=== PATIENT | female | born 1960 | race Caucasian/White ===

== ENCOUNTER 2019-12-08 21:37 | Emergency (ER) | payer OTHER, SELFPAY ==
--- NOTE | ~2019-12-08 | CT_ITS ---
EXAMINATION: CT abdomen pelvis w con DATE: 12/09/2019 01:24 INDICATION: Right lower abdominal pain TECHNIQUE: Computed tomography (CT) of the abdomen and pelvis was performed with 100 cc Omnipaque 350 intravenous contrast. Automated exposure control and iterative reconstruction technique were employe d. Exam dose: 818.18 mGy-cm total exam DLP. COMPARISON: 10/29/2008 CT abdomen pelvis FINDINGS: The lung bases are clear of infiltrate or consolidation. Normal heart size. No pericardial or pleural effusion. Status post cholecystectomy. No hepatic, splenic, pancreatic, adrenal or renal space-occupying mass l esion is detected. No bile duct or pancreatic duct dilatation. No urinary tract calculus or hydrouret eronephrosis. The urinary bladder is unremarkable. Retroverted uterus. Normal caliber of the abdominal aorta. No intraperitoneal or retroperitoneal or pelvic mass lesion or adenopathy or ascites. Normal appendix. No bowel obstruction, bowel wall thickening, pneumatosis or intraperitoneal free air . Degenerative changes of the thoracic and lumbar spine. No suspicious osteolytic or osteoblastic lesio ns are noted. IMPRESSION: Status post cholecystectomy Normal appendix. Reviewed, dictated and finalized at [facility] Reviewed, dictated and finalized at [facility].
[2019-12-08 22:29] VITALS: BP 115/91; PULSE 81; RESP 20; TEMP 36.3; O2SAT 97
[2019-12-08 22:46] LABS: Basophils Percent Auto 0.4 % (0.2-1.2); Eosinophils Absolute Auto 0.2 K/mm3 (0-0.3); Eosinophils Percent Auto 2.7 % (0-4.4); Hematocrit 43.8 % (37.0-47.0); Hemoglobin 14.9 g/dL (12.0-15.0); Immature Granulocyte Absolute 0.02 K/mm3 (0.00-0.031); Immature Granulocyte Percent A 0.3 % (0-0.5); Lymphocytes Absolute Auto 1.43 K/mm3 (0.9-3.2); Lymphocytes Percent Auto 21.3 % (18.3-44.2); Mean Corpuscular Hemoglobin 29.6 pg (26-34); Mean Corpuscular Volume 86.9 fl (80-100); Mean Platelet Volume 10.9 fl (7.4-10.4); Monocytes Absolute Auto 0.6 K/mm3 (0.1-0.6); Monocytes Percent Auto 9.4 % (2.6-8.5); Neutrophils Absolute Auto 4.4 K/mm3 (1.3-6.7); Neutrophils Percent Auto 65.9 % (45.5-73.1); Platelet Count Result 186 k/mm3 (150-375); Red Blood Count 5.04 M/mm3 (4.2-5.4); Red Cell Distribution Width 12.3 % (11.5-14.5); White Blood Count 6.7 K/mm3 (4.5-10.0)
[2019-12-08 22:58] LABS: Alanine Aminotransferase 23 U/L (4-35); Albumin Level 4.3 g/dL (3.5-5.1); Alkaline Phosphatase 86 U/L (38-126); Anion Gap 6 mmol/L (8-16); Aspartate Amino Transferase 28 U/L (14-36); Bilirubin,Total 0.6 mg/dL (0.2-1.3); Blood Urea Nitrogen 19 mg/dL (7-17); Calcium 10.1 mg/dL (8.4-10.2); Carbon Dioxide 26 mmol/L (22-30); Chloride 103 mmol/L (98-107); Estimated CRCL calculation 65 ml/min; Estimated Glomerular Filt Rate > 60; Glucose 115 mg/dL (65-105); Lipase 82 U/L (23-300); Potassium 3.7 mmol/L (3.4-5.0); Sodium 135 mmol/L (137-145)
[2019-12-08 23:54] VITALS: BP 112/70; PULSE 82
[2019-12-08 23:56] VITALS: BP 116/75; PULSE 80
[2019-12-08 23:58] VITALS: BP 112/66
--- NOTE | 2019-12-09 00:47 | ED.NAVMDI ---
HPI - Nausea/Vomiting/Diarrhea General Chief complaint: Nausea/Vomiting/Diarrhea Stated complaint: Diarrhea,RLQ pain Time Seen by Provider: 12/08/19 23:50 Source: patient Mode of arrival: ambulatory Limitations: no limitations History of Present Illness HPI Narrative: This patient is a 59 year old female who presents for evaluation of nausea and diarrhea. She developed diarrhea 2 nights ago. She reports she has intermittent episodes of explosive watery diarrhea. She also reports she feels really gasey. She developed right lower abdominal pain with nausea today so she came to ER. She denies fever or chills. Related Data Allergies Allergy/AdvReac Type Severity Reaction Status Date / Time neomycin Allergy Mild Unknown Verified 12/08/19 22:34 hydromorphone Allergy Unknown MAKES HER Verified 12/08/19 22:34 SICK Sulfa (Sulfonamide Allergy Unknown Hives Verified 12/08/19 22:34 Antibiotics) Review of Systems Review of Systems: All systems reviewed & are unremarkable except as noted in HPI and below Constitutional: Constitutional: Denies chills and Denies fever(s) ENT: Denies sore throat Cardiovascular: Cardiovascular: Denies chest pain Respiratory: Respiratory: Denies cough and Denies dyspnea Gastrointestinal: Gastrointestinal: Reports abdominal pain, Reports diarrhea, Reports nausea and Denies vomiting PMFSH Past Medical History Medical History (Updated 12/09/19 @ 03:24 by Yarelis Wetzel MD) IBS (irritable bowel syndrome) Surgical History Surgical History (Updated 12/09/19 @ 00:49 by Yarelis Wetzel MD) Hx of cholecystectomy Social History Social History (Updated 12/09/19 @ 07:35 by Yarelis Wetzel MD) Smoking status: Never smoker Exam Const: General: alert Orientation/consciousness: patient oriented x3 HENMT: Head: normocephalic and atraumatic Eyes: EOM: EOMs intact bilaterally Chest: Chest palpation & inspection: normal inspection of the chest Resp: Effort & Inspection: normal respiratory effort and no retractions Auscultation: clear to auscultation bilaterally Cardio: Rate: regular rate Rhythm: regular rhythm Heart sounds: no murmurs GI: GI Palp: Yes Soft to palpation, Yes Tenderness to palpation present (GI) (rLQ), No Guarding due to palpation present (GI) and No Rigid due to palpation Course Reevaluation(s) Reevaluation #1: I discussed with patient that CT shows fatty liver. She reports she is on a keto diet. She will follow up with PCP Date: 12/09/19 Time: 03:22 Vital Signs Vital signs: Vital Signs Temperature 97.4 F L 12/08/19 22:29 Pulse Rate 81 12/08/19 22:29 Respiratory Rate 20 12/08/19 22:29 Blood Pressure 115/91 H 12/08/19 22:29 Pulse Oximetry 97 12/08/19 22:29 Temperature 97.4 F L 12/08/19 22:29 Pulse Rate 72 12/09/19 03:43 Respiratory Rate 16 12/09/19 03:43 Blood Pressure 102/59 L 12/09/19 03:43 Pulse Oximetry 99 12/09/19 03:43 MDM - Nausea/Vomiting/Diarrhea Lab Data Attestation: I reviewed the patient's lab results. Result diagrams: 12/08/19 22:40 12/08/19 22:40 Labs: Lab Results 12/08/19 12/08/19 12/09/19 Range/Units 22:40 22:40 00:20 WBC 6.7 (4.5-10.0) K/mm3 RBC 5.04 (4.2-5.4) M/mm3 Hgb 14.9 (12.0-15.0) g/dL Hct 43.8 (37.0-47.0) % MCV 86.9 (80-100) fl MCH 29.6 (26-34) pg MCHC 34.0 (32-36) g/dl RDW 12.3 (11.5-14.5) % Plt Count 186 (150-375) k/mm3 MPV 10.9 H (7.4-10.4) fl Immature Gran % (Auto) 0.3 (0-0.5) % Neut % (Auto) 65.9 (45.5-73.1) % Lymph % (Auto) 21.3 (18.3-44.2) % Kern % (Auto) 9.4 H (2.6-8.5) % Eos % (Auto) 2.7 (0-4.4) % Baso % (Auto) 0.4 (0.2-1.2) % Lymph # (Auto) 1.43 (0.9-3.2) K/mm3 Kern # (Auto) 0.6 (0.1-0.6) K/mm3 Eos # (Auto) 0.2 (0-0.3) K/mm3 Baso # (Auto) 0.0 (0.0-0.1) K/mm3 Abs Immat Gran (auto) 0.02 (0.00-0.031) K/mm3 Absolute Neuts (au
[2019-12-09 00:50] LABS: Add Urine Microscopic? YES; Appearance Urine Clear (Clear); Bilirubin Urine Negative (Negative); Blood Urine Negative (Negative); Color Urine Yellow (Yellow); Glucose Urine UA Negative (Negative); Ketones Urine Negative (Negative); Leukocyte Esterase Ur Trace LEU/UL (Negative); Mucus Urine Rare /lpf; Nitrate Urine Negative (Negative); Protein Urine Negative (Negative); RBC Urine 0-2 /hpf (0-2); Specific Grav Ur 1.015 (1.001-1.035); Squamous Epithelial Cell Urine Occasional /hpf (Few); Urobilinogen Urine Negative mg/dL (<2.0)
[2019-12-09 01:00] VITALS: BP 112/65; PULSE 70; RESP 16; O2SAT 99
[2019-12-09 02:00] VITALS: BP 135/74; PULSE 67
[2019-12-09] MEDS: LACTATED RINGERS 1,000 ML 999 ML IV CONT (02:10)
[2019-12-09] MEDS: ONDANSETRON INJ 4 MG/2 ML VIAL IV PUSH (02:20)
[2019-12-09 03:43] VITALS: BP 102/59; PULSE 72; RESP 16; O2SAT 99
== END 2019-12-09 03:44 | disposition home or self-care (01) ==
PROVIDERS: Emergency Provider General Practice; PCP Family Medicine Adolescent Medicine
DX: R10.31 Right lower quadrant pain (principal); R19.7 Diarrhea, unspecified; K76.0 Fatty (change of) liver, not elsewhere classified
CPT/HCPCS: 36415; 74177; 80053; 81001; 81025; 83690; 85025; 96361; 96374; 96375; 99284; J0131; J2405; J7120; Q9967

== ENCOUNTER 2020-12-22 16:13 | Emergency (ER) | payer OTHER, SELFPAY ==
[2020-12-22 16:28] VITALS: BP 113/69; PULSE 82; RESP 16; TEMP 36.2; O2SAT 98
[2020-12-22 16:30] VITALS: BP 113/69; PULSE 82; RESP 16; TEMP 36.2; O2SAT 98
--- NOTE | 2020-12-22 17:25 | ED.BURNSMOKE ---
HPI - Burn/Smoke Inhalation General Chief complaint: Burn/Smoke Inhalation Stated complaint: Burn on Hand Time Seen by Provider: 12/22/20 17:10 Source: patient, RN notes reviewed and old records reviewed Mode of arrival: ambulatory Limitations: no limitations History of Present Illness HPI Narrative: 60-year-old female accompanied by spouse presents to express care with complaint of burn to dorsal aspect of her left proximal 5th finger which occurred about one week ago while getting pain out of oven. Patient states that she has been applying bacitracin ointment to burn area,reports that blister formation at first but it did bust. Patient states that she is concerned because she has increase in discomfort back into her hand now with no redness of dorsal hand noted or any red streaking noted into hand or any acute warmth of hand. 1cm burn noted to dorsal proximal left 5th finger with center area noted to be in healing stages with no surrounding erythema noted. Patient states she thinks she needs some Silvadene ointment for her burn. Cautioned patient that she is allergic to sulfa and normally don't use Silvadene with sulfa allergy, patient states that she has used it before. MD Complaint: burn Onset (ago): week(s) (1) Related Data Home Medications Medication Instructions Recorded Confirmed conjugated estrogens [Premarin] 0.625 mg TOPICAL DAILY 12/22/20 12/22/20 mirabegron [Myrbetriq] 25 mg PO DAILY 12/22/20 12/22/20 vortioxetine [Trintellix] 20 mg PO DAILY 12/22/20 12/22/20 Allergies Allergy/AdvReac Type Severity Reaction Status Date / Time neomycin Allergy Mild Unknown Verified 12/22/20 16:25 hydromorphone Allergy Unknown MAKES HER Verified 12/22/20 16:25 SICK Sulfa (Sulfonamide Allergy Unknown Hives Verified 12/22/20 16:25 Antibiotics) Review of Systems Review of Systems: CONSTITUTIONAL: Denies fever, chills, or sweats. EYES: Denies visual changes, redness, or discharge. ENT: Denies rhinorrhea, congestion, sore throat, or otalgia. CARDIOVASCULAR: Denies chest pain, palpitations, or edema. RESPIRATORY: Denies cough or dyspnea. GASTROINTESTINAL: Denies abdominal pain, nausea, vomiting, or diarrhea. GENITOURINARY: Denies dysuria or hematuria. SKIN: Denies rash or itching.healing burn to proximal left 5th finger with stated pain into dorsal hand now MUSCULOSKELETAL: Denies back pain, joint pain, or myalgia. NEUROLOGIC: Denies headache, numbness, or weakness. PSYCHIATRIC: Positive history of anxiety or depression. All systems reviewed & are unremarkable except as noted in HPI and below PMFSH Past Medical History Medical History (Updated 12/26/20 @ 10:05 by Viri Su NP) Anxiety Arthritis GERD (gastroesophageal reflux disease) IBS (irritable bowel syndrome) Peripheral neuropathy Surgical History Surgical History (Updated 12/26/20 @ 10:05 by Viri Su NP) Hx of cholecystectomy Previous section Family History Family History (Updated 12/26/20 @ 10:07 by Viri Su NP) Sibling Diabetes mellitus Father Diabetes mellitus Heart disease Social History Social History (Updated 12/26/20 @ 10:06 by Viri Su NP) Smoking status: Never smoker Alcohol intake: current Alcohol use details: rare use Substance use: never Living arrangements: with family Gender identity (if verbalized by the patient): Female Comments At time of signature, agree with nursing past medical, surgical, social and family history. There is no relevant family history pertinent to the presenting complaint Exam Narrative: GENERAL: Well-appearing, well-nourished, and in no acute distress. HEAD: Normocephalic, atraumatic. EYES: PERRLA and EOMI. ENT: Nares clear, no rhinorrhea or epistaxis. Mucous membranes moist.TM's normal with good light reflex, throat normal with no redness lesions or exudates no tonsil enlargement. NECK: Supple.no lymphadenopathy CHEST: Clear to auscultation. No
== END 2020-12-22 17:44 | disposition home or self-care (01) ==
PROVIDERS: Emergency Provider Registered Nurse; PCP Family Medicine Adolescent Medicine
DX: T23.022A Burn of unspecified degree of single left finger (nail) except thumb, initial encounter (principal); X15.0XXA Contact with hot stove (kitchen), initial encounter
CPT/HCPCS: 99213; G0463

== ENCOUNTER 2021-12-28 12:28 | Emergency (ER) | payer OTHER, SELFPAY ==
--- NOTE | ~2021-12-28 | CT_ITS ---
EXAMINATION: CT abdomen pelvis wo con DATE: 12/28/2021 13:43 INDICATION: Left flank pain TECHNIQUE: Computed tomography (CT) of the abdomen and pelvis was performed without intravenous contr ast. The dose-length product was 702.11 mGy-cm. Automated exposure control and iterative reconstructi on technique were employed. COMPARISON: CT dated 12/09/2019 FINDINGS: Lung bases are unremarkable. Heart size is normal. No significant pleural or pericardial ef fusion. There is a 5 mm left UVJ stone with mild left hydroureteronephrosis. There are cholecystectom y clips. The liver, spleen, pancreas, adrenal glands and right kidney are unremarkable. Nonobstructiv e bowel pattern. No free air or free fluid. No abnormal pelvic masses or fluid collections. There is mild-moderate lumbar spondylosis with grade 1 degenerative spondylolisthesis at L4-5. No focal lytic or blastic lesions. There is mild osteoarthritis of the hips. There is dextroscoliosis of the lumbar spine. IMPRESSION: 1. Left UVJ stone measuring 5 mm with mild hydroureteronephrosis. Reviewed, dictated and finalized at [facility].
[2021-12-28 12:39] VITALS: BP 126/82; PULSE 87; RESP 16; TEMP 36.4; O2SAT 98
--- NOTE | 2021-12-28 13:12 | ED.BACK ---
HPI - Back Pain/Injury General Chief Complaint: Back Pain/Injury Stated Complaint: lower left back pain/ sudden onset UTI Time Seen by Provider: 12/28/21 12:43 Source: RN notes reviewed History of Present Illness HPI Narrative: Patient presents emergency room from home for onset back pain. Patient states pain began suddenly this morning around 10 AM. The pain is located in the left lower back and radiates around the left side of the abdomen described as aching in nature states the pain will come and go and be severe in intensity and then be mild states is associated with dysuria she denies any fevers or chills chest shortness of breath does note nausea but denies any vomiting Related Data Home Medications Medication Instructions Recorded Confirmed escitalopram oxalate 20 mg tablet 20 mg PO DAILY 03/19/21 11/05/21 (Lexapro) pantoprazole 40 mg tablet,delayed 40 mg PO BID 11/05/21 11/05/21 release Allergies Allergy/AdvReac Type Severity Reaction Status Date / Time neomycin Allergy Mild Unknown Verified 12/28/21 12:41 hydromorphone Allergy Unknown MAKES HER Verified 12/28/21 12:41 SICK Sulfa (Sulfonamide Allergy Unknown Hives Verified 12/28/21 12:41 Antibiotics) doxycycline AdvReac Unknown unknown Verified 12/28/21 12:41 Review of Systems Review of Systems: Gen.: Denies fevers or chills ENT: Denies congestion Respiratory: Denies shortness of breath or cough CV: Denies chest pain or palpitations GI: Reports left-sided abdominal pain and mild nausea denies vomiting or diarrhea reports dysuria Musculoskeletal: Denies back pain or muscle pain Neuro: Denies numbness, tingling, weakness or focal weakness Skin: Denies rash Except as documented, all other systems reviewed and negative [facility] Past Medical History Medical History IBS (irritable bowel syndrome) Peripheral neuropathy Surgical History Surgical History Hx of cholecystectomy (1999) 1999 Hx of laser iridotomy Previous section Family History Family History Sibling Diabetes mellitus Father Diabetes mellitus Heart disease Cerebrovascular accident Mother Hypertension AAA (abdominal aortic aneurysm) Grandparent Aneurysm Social History Social History Smoking status: Never smoker Alcohol intake: current Alcohol use details: rare use Substance use: never Gender identity (if verbalized by the patient): Female Exam Narrative: APPEARANCE: No acute distress, nontoxic, resting in bed EYES: EOMI HEENT: Normocephalic, atraumatic, OMM RESPIRATORY: No respiratory distress Clear to auscultation bilaterally with no rhonchi wheezing or rales. CARDIOVASCULAR: Regular rate and rhythm without murmurs rubs or gallops. ABDOMINAL: Soft, n nondistended, tender palpation left lower quadrant no tenderness left upper quadrant, right upper quadrant right lower quadrant no rebound or guarding, left flank tenderness MUSCULOSKELETAl: Moves all extremities. No clubbing, cyanosis or edema. NEURO: Awake and alert. Following commands, speech normal, no focal deficits SKIN:: Warm, dry. No rashes lesions or abrasions PSYCHIATRIC: Normal affect/mood, Course Course Emergency Course: Discussed with patient results of workup and diagnosis. Discussed need for follow-up with primary care, proper use of medication, and reasons to return to the emergency department. Patient understands and agrees to current treatment plan patient states she is followed by urology Dr. Anamika Peralta Vital Signs Vital signs: Vital Signs Temperature 97.6 F 12/28/21 12:39 Pulse Rate 87 12/28/21 12:39 Respiratory Rate 16 12/28/21 12:39 Blood Pressure 126/82 12/28/21 12:39 Pulse Oximetry 98 12/28/21 12:39 Temperature 97.6 F
[2021-12-28 13:25] LABS: Basophils Percent Auto 0.4 % (0.2-1.2); Eosinophils Absolute Auto 0.1 K/mm3 (0-0.3); Eosinophils Percent Auto 2.7 % (0-4.4); Hematocrit 39.6 % (37.0-47.0); Hemoglobin 13.3 g/dL (12.0-15.0); Lymphocytes Absolute Auto 1.26 K/mm3 (0.9-3.2); Lymphocytes Percent Auto 26.2 % (18.3-44.2); Mean Corpuscular HGB Conc 33.6 g/dl (32-36); Mean Corpuscular Hemoglobin 29.9 pg (26-34); Mean Platelet Volume 10.9 fl (7.4-10.4); Monocytes Absolute Auto 0.4 K/mm3 (0.1-0.6); Monocytes Percent Auto 9.1 % (2.6-8.5); Neutrophils Percent Auto 61.6 % (45.5-73.1); Platelet Count Result 151 k/mm3 (150-375); Red Blood Count 4.45 M/mm3 (4.2-5.4); Red Cell Distribution Width 11.9 % (11.5-14.5); White Blood Count 4.8 K/mm3 (4.5-10.0)
[2021-12-28] MEDS: KETOROLAC 30 MG/ML VIAL (*BKC) IV PUSH (13:25)
[2021-12-28] MEDS: SODIUM CHLORIDE 0.9% IV 1,000 ML 999 ML IV CONT (13:26)
[2021-12-28 13:29] LABS: Add Urine Microscopic? YES; Appearance Urine Clear (Clear); Bilirubin Urine Negative (Negative); Blood Urine 2+ (Negative); Color Urine Yellow (Yellow); Glucose Urine UA Negative (Negative); Ketones Urine Negative (Negative); Leukocyte Esterase Ur Negative LEU/UL (Negative); Nitrate Urine Negative (Negative); Protein Urine Negative (Negative); RBC Urine 0-2 /hpf (0-2); Specific Grav Ur 1.005 (1.001-1.035); Urobilinogen Urine Negative mg/dL (<2.0); WBC Urine 0-3 /hpf
[2021-12-28 13:37] LABS: Alanine Aminotransferase 19 U/L (6-35); Albumin Level 4.2 g/dL (3.5-5.1); Alkaline Phosphatase 72 U/L (38-126); Anion Gap 0 mmol/L (8-16); Aspartate Amino Transferase 22 U/L (14-36); Bilirubin,Total 0.6 mg/dL (0.2-1.3); Blood Urea Nitrogen 16 mg/dL (7-17); Calcium 9.1 mg/dL (8.4-10.2); Carbon Dioxide 27 mmol/L (22-30); Chloride 111 mmol/L (98-107); Estimated CRCL calculation 71 ml/min; Estimated Glomerular Filt Rate > 60; Glucose 106 mg/dL (65-110); Lipase 72 U/L (23-300); Potassium 3.5 mmol/L (3.4-5.0); Sodium 138 mmol/L (137-145)
[2021-12-28] MEDS: TAMSULOSIN HCL 0.4 MG CAPSULE PO (14:14)
[2021-12-28 15:00] VITALS: BP 132/74; PULSE 84; RESP 16; O2SAT 99
== END 2021-12-28 15:01 | disposition home or self-care (01) ==
PROVIDERS: Emergency Provider Emergency Medicine; PCP Family Medicine Adolescent Medicine
DX: N13.2 Hydronephrosis with renal and ureteral calculous obstruction (principal); K58.9 Irritable bowel syndrome, unspecified; G62.9 Polyneuropathy, unspecified
CPT/HCPCS: 36415; 74176; 80053; 81001; 83690; 85025; 96361; 96374; 99284; A9270; J1885; J7030

== ENCOUNTER 2021-12-29 00:12 | Emergency (ER) | payer OTHER, SELFPAY ==
[2021-12-29] VITALS (19 sets, daily range): BP systolic 97–122; BP diastolic 43–72; PULSE 61–81; RESP 11–24; TEMP 36.1; O2SAT 96–100
[2021-12-29 00:58] LABS: Basophils Percent Auto 0.5 % (0.2-1.2); Eosinophils Absolute Auto 0.2 K/mm3 (0-0.3); Eosinophils Percent Auto 2.4 % (0-4.4); Hemoglobin 12.6 g/dL (12.0-15.0); Immature Granulocyte Absolute 0.02 K/mm3 (0.00-0.031); Immature Granulocyte Percent A 0.3 % (0-0.5); Lymphocytes Percent Auto 27.2 % (18.3-44.2); Mean Corpuscular HGB Conc 33.2 g/dl (32-36); Mean Corpuscular Hemoglobin 30.1 pg (26-34); Mean Corpuscular Volume 90.9 fl (80-100); Mean Platelet Volume 11.4 fl (7.4-10.4); Monocytes Absolute Auto 0.6 K/mm3 (0.1-0.6); Monocytes Percent Auto 9.8 % (2.6-8.5); Neutrophils Absolute Auto 3.7 K/mm3 (1.3-6.7); Neutrophils Percent Auto 59.8 % (45.5-73.1); Platelet Count Result 148 k/mm3 (150-375); Red Blood Count 4.18 M/mm3 (4.2-5.4); Red Cell Distribution Width 11.9 % (11.5-14.5); White Blood Count 6.2 K/mm3 (4.5-10.0)
--- NOTE | 2021-12-29 01:06 | ED.FEMALEGU ---
HPI - Female Genitourinary General Chief complaint: Urogenital-Female Stated complaint: KIDNEY STONE Time Seen by Provider: 12/29/21 00:19 History of Present Illness HPI Narrative: This is a 61-year-old female recently seen in the emergency department returning with concerns for decreased urination. The patient states she presented with flank pain and was diagnosed with a kidney stone. After discharge, despite drinking several bottles of water, she says she has not been able to urinate. When attempting, she states she was only able to produce a small dribble. She denies any new abdominal pain, though has had episodes of flank pain consistent with the pain that brought her to the emergency department. She denies fevers, chills, nausea or vomiting. Related Data Home Medications Medication Instructions Recorded Confirmed escitalopram oxalate 20 mg tablet 20 mg PO DAILY 03/19/21 11/05/21 (Lexapro) pantoprazole 40 mg tablet,delayed 40 mg PO BID 11/05/21 11/05/21 release Allergies Allergy/AdvReac Type Severity Reaction Status Date / Time neomycin Allergy Mild Unknown Verified 12/28/21 12:41 hydromorphone Allergy Unknown MAKES HER Verified 12/28/21 12:41 SICK Sulfa (Sulfonamide Allergy Unknown Hives Verified 12/28/21 12:41 Antibiotics) doxycycline AdvReac Unknown unknown Verified 12/28/21 12:41 Review of Systems Review of Systems: CONSTITUTIONAL: Denies fever, chills, or sweats. CARDIOVASCULAR: Denies chest pain, palpitations, or edema. RESPIRATORY: Denies cough or dyspnea. GASTROINTESTINAL: Intermittent flank pain denies nausea, vomiting, or diarrhea. GENITOURINARY: Denies dysuria or hematuria. SKIN: Denies rash or itching. MUSCULOSKELETAL: Denies back pain, joint pain, or myalgia. NEUROLOGIC: Denies headache, numbness, dizziness, or weakness. PSYCHIATRIC: Denies anxiety or depression. FORMERLY [facility], [facility] Past Medical History Medical History IBS (irritable bowel syndrome) Peripheral neuropathy Surgical History Surgical History Hx of cholecystectomy (1999) 1999 Hx of laser iridotomy Previous section Family History Family History Sibling Diabetes mellitus Father Diabetes mellitus Heart disease Cerebrovascular accident Mother Hypertension AAA (abdominal aortic aneurysm) Grandparent Aneurysm Social History Social History Smoking status: Never smoker Alcohol intake: current Alcohol use details: rare use Substance use: never Gender identity (if verbalized by the patient): Female Exam Narrative: GENERAL: Well-appearing, well-nourished, and in no acute distress. HEAD: Normocephalic, atraumatic. NECK: Supple. No adenopathy or masses. No carotid bruits or JVD CHEST: Clear to auscultation. No respiratory distress. No wheezes rales or rhonchi HEART: Regular rate and rhythm. No murmur heard. Normal peripheral pulses. ABDOMEN: Mild right CVA tenderness to palpation, soft, nontender, nondistended, normal active bowel sounds. EXTREMITIES: Normal range of motion. No edema. SKIN: Warm, dry, no rash. NEURO: No focal deficits. Alert and oriented x3. PSYCH: Normal mood and affect. Course Course Emergency Course: 02:05 - Chemistries not concerning for kidney injury. CBC unremarkable. After 500 cc of IV fluid, the patient urinated without difficulty. Discussed findings and recommendations for continued hydration and pain management as previously advised. Discussed return and emergency precautions including signs/symptoms of sepsis and acute abdomen. The patient voiced understanding and is comfortable with plan. All questions answered to her satisfaction. Vital Signs Vital signs: Vital Signs Temperature 97 F L 12/29/21 00:15 Pulse Rate 65 12/29/21 00:15
[2021-12-29 01:11] LABS: Alanine Aminotransferase 18 U/L (6-35); Alkaline Phosphatase 75 U/L (38-126); Anion Gap 6 mmol/L (8-16); Aspartate Amino Transferase 22 U/L (14-36); Bilirubin,Total 0.4 mg/dL (0.2-1.3); Blood Urea Nitrogen 15 mg/dL (7-17); Calcium 8.8 mg/dL (8.4-10.2); Carbon Dioxide 25 mmol/L (22-30); Chloride 105 mmol/L (98-107); Estimated CRCL calculation 63 ml/min; Estimated Glomerular Filt Rate > 60; Glucose 112 mg/dL (65-110); Potassium 3.6 mmol/L (3.4-5.0); Sodium 136 mmol/L (137-145)
[2021-12-29] MEDS: SODIUM CHLORIDE 0.9% IV 1,000 ML 999 ML IV CONT (01:35)
--- NOTE | 2021-12-29 02:00 | PC.NURSE ---
Per plumbing foreman, pt able to urinate without difficulty. Strainer provided at pt request.
== END 2021-12-29 02:54 | disposition home or self-care (01) ==
PROVIDERS: Emergency Provider Preventive Medicine Aerospace Medicine; PCP Family Medicine Adolescent Medicine
DX: N20.0 Calculus of kidney (principal); R10.9 Unspecified abdominal pain; K58.9 Irritable bowel syndrome, unspecified; G62.9 Polyneuropathy, unspecified
CPT/HCPCS: 36415; 80053; 85025; 96360; 99283; J7030